=== PATIENT | male | born 1960 | race Two or more races ===

== ENCOUNTER 2020-11-02 15:57 | Emergency (ER) | payer OTHER ==
[~2020-11-02] VITALS: Ht 157.5 cm; Wt 62.2 kg
[2020-11-02] MEDS ORDERED: ONDANSETRON ODT 4 MG ONE (16:27)
[2020-11-02] MEDS ORDERED: ONDANSETRON ODT 4 MG PO ONE (16:30)
--- NOTE | 2020-11-02 16:31 | NUR ---
CC OF N/V AND EPIGASTRIC ABD PAIN. PT CURRENTLY VOMITING IN ROOM, DARK BROWN LIQUID EMESIS. NO COFFEE GROUND APPERANCE. PT DENIES BLACK OR RED BM. PT DIAPHORETIC AND AND HAS C/O "IM VERY COLD".
[2020-11-02] MEDS ORDERED: ONDANSETRON 2MG/ML, 2ML ONE (16:56)
[2020-11-02] MEDS ORDERED: FAMOTIDINE 20 MG/2 ML ONE (16:56)
[2020-11-02] MEDS ORDERED: MAALOX/HYOSCYAMINE/LIDOCAINE 45 ML BTL ONE (16:56)
[2020-11-02] MEDS ORDERED: FAMOTIDINE 20 MG/2 ML IVPush ONE (17:00)
[2020-11-02] MEDS ORDERED: MAALOX/HYOSCYAMINE/LIDOCAINE 45 ML BTL PO ONE (17:00)
[2020-11-02] MEDS ORDERED: SODIUM CHLORIDE 0.9% 1,000ML IVBOLUS ONE (17:00)
[2020-11-02] MEDS ORDERED: ONDANSETRON 2MG/ML, 2ML IVPush ONE (17:00)
[2020-11-02] MEDS ORDERED: SODIUM CHLORIDE FLUSH 10ML SYR IVF ONE (17:00)
[2020-11-02 17:10] LABS: BASOPHILS % (AUTO) 0 % (0-1); EOSINOPHILS % (AUTO) 0 % (1-7); LYMPHOCYTES % (AUTO) 7 % (22-44); MEAN CORPUSCULAR HEMOGLOBIN 31.1 pg (27.5-34.5); MEAN CORPUSCULAR HGB CONC 34.1 g/dL (33.2-36.2); MEAN PLATELET VOLUME 8.1 fL (7.4-10.4); MONOCYTES % (AUTO) 4 % (2-9); NEUTROPHILS % (AUTO) 90 % (42-75); PLATELET COUNT 276 x10^3/uL (130-400); RED BLOOD COUNT 5.31 x10^6/uL (4.38-5.82); RED CELL DISTRIBUTION WIDTH 15.5 % (9.4-14.8)
[2020-11-02 17:14] LABS: ALANINE AMINOTRANSFERASE 15 U/L (12-78); ANION GAP 7 mmol/L (5-15); CALCIUM 9.5 mg/dL (8.5-10.1); CHLORIDE 106 mmol/L (98-107); CREATININE 0.76 mg/dL (0.7-1.3)
[2020-11-02 17:16] LABS: ALKALINE PHOSPHATASE 123 U/L (45-117); BILIRUBIN,TOTAL 0.8 mg/dL (0.2-1.0); TOTAL PROTEIN 7.7 g/dL (6.4-8.2)
--- NOTE | 2020-11-02 18:28 | NUR ---
PT REPORTS ABD PAIN IS COMING BACK
[2020-11-02 18:29] VITALS: BP 156/76
== END 2020-11-02 19:33 | disposition home or self-care (01) ==
LOC: ED 17:18
DX: R10.13 Epigastric pain (principal); G89.29 Other chronic pain; R10.10 Upper abdominal pain, unspecified; R63.0 Anorexia; R11.0 Nausea; Z68.25 Body mass index [BMI] 25.0-25.9, adult
CPT/HCPCS: 36415; 76700; 80053; 83690; 85025; 96361; 96374; 96375; 99284; J2405; J7030; Q0162